=== PATIENT | male | born 1985 | race Two or more races ===

== ENCOUNTER 2025-03-14 15:23 | Emergency (ER) | payer MEDICAID, OTHER ==
[~2025-03-14] VITALS: Ht 170.2 cm; Wt 72.7 kg
[2025-03-14] MEDS: FLUORESCEIN SOD OPTH TEST STRIP EACHEYE ONE (16:13)
[2025-03-14] MEDS: TETRACAINE HCL 0.5% OPTH(EYE) SOLN 4ML EACHEYE ONE (16:14)
[2025-03-14 16:35] VITALS: BP 122/78; PULSE 95; RESP 18; TEMP 97.9; O2SAT 98
--- NOTE | 2025-03-14 16:49 | ED.PDOC ---
Eye-HPI HPI Comments This is a 39 year old male presenting to the ED with a chief complaint of left eye pain and redness. Patient reports that three days ago he was cutting metal and some shavings flew into his left eye due to not wearing eye protection. Patient relays that he continued to have worsening pain, redness, and photophobia throughout the three days. Patient states that his last tetanus was over 10 years ago. Denies vision changes Denies eye discharge Denies hearing changes, nausea, vomiting Chief Complaint: Eye Problem Time Seen by MD: 16:03 Primary Care Provider: n/a Reviewed Notes: Nurses Notes, Medications, Allergies Allergies: Coded Allergies: NO KNOWN ALLERGIES (Unverified , 03/14/25) Home Meds Active Scripts Erythromycin (Erythromycin) 5 Mg/Gm Oin, 1 APPLIC OP TID for 7 Days, #3.5 GRAMS 0 Refills Prov:RANI DIAS BREAKFAST ATTENDANT 03/14/25 Ketorolac Tromethamine (Ophth) (Ketorolac Tromethamine) 0.5 % Isabel, 1 DROP LEFTEYE QID for 3 Days, #5 ML 0 Refills Prov:RANI DIAS BREAKFAST ATTENDANT 03/14/25 Information Source: Patient Mode of Arrival: Ambulatory Timing: Days Duration: Since onset Prehospital treatment: None Quality: Pain, Red Eye Location: Left Lids: Normal Conjunctiva: Injection Cornea: Left eye, Abrasion, Foreign Body Pupils: Normal EOM: Normal Fundus: Normal Slit lamp exam: Left eye, Corneal abrasion, Foreign Body, Flourescein stain:, Positive Anterior chamber: Normal Onset: Trauma Throat Exposed to: None Eye Context Recent: High speed machinery use History of: None Last Tetanus: >5 years Associated signs and symptoms: Photophobia Past Medical History PAST MEDICAL HISTORY: Denies Surgical History: Denies all surgeries Family History Family History: Reviewed,noncontributory to illness Social History Smoker: Non-Smoker Alcohol: Denies ETOH Use Drugs: Denies Drug Use Lives In: Home Constitutional: denies: chills, diaphoresis, fatigue, fever, malaise, sweats, weakness, others EENTM: reports: eye pain, eye redness, photophobia; denies: blurred vision, double vision, ear bleeding, ear discharge, ear drainage, ear pain, ear ringing, hearing loss, mouth pain, mouth swelling, nasal discharge, nose bleeding, nose congestion, nose pain, tearing, throat pain, throat swelling, voice changes, others Respiratory: denies: cough, hemoptysis, orthopnea, SOB at rest, shortness of breath, SOB with excertion, stridor, wheezing, others Cardiovascular: denies: chest pain, dizzy spells, diaphoresis, Dyspnea on exertion, edema, irregular heart beat, left arm pain, lightheadedness, palpitations, PND, syncope, others Gastrointestinal: denies: abdomen distended, abdominal pain, blood streaked bowels, constipated, diarrhea, dysphagia, difficulty swallowing, hematemesis, m camilo, nausea, poor appetite, poor fluid intake, rectal bleeding, rectal pain, vomiting, others Genitourinary: denies: burning, dysuria, flank pain, frequency, hematuria, incontinence, penile discharge, penile sore, pain, testicle pain, testicle swelling, urgency, others Neurological: denies: dizziness, fainting, headache, left sided numbness, left sided weakness, numbness, paresthesia, pre-existing deficit, right sided numbness, right sided weakness, seizure, speech problems, tingling, tremors, weakness, others Musculoskeletal: denies: back pain, gout, joint pain, joint swelling, muscle pain, muscle stiffness, neck pain, others Integumetry: denies: bruises, change in color, change in hair/nails, dryness, laceration, lesions, lumps, rash, wounds, others Allergic/Immunocompromised: denies: Difficulty Healing, Frequent Infections, Hives, Itching, others Hematologic/Lymphatic: denies: anemia, blood clots, easy bleeding, easy bruising, swollen glands, others Endocrine: denies: excessive hunger, excessive sweating, excessive thirst, excessive urination, flushing, intolerance to cold, intolerance to heat, unexplained weight gain, unexplained weight loss, others Psychiatric: denies: anxiety, bipolar disorder, depression, hopeless, panic disorder, schizophrenia, sleepless, suicidal, others All Other Systems: Reviewed and Negative Physical Exam General Appearance: No Apparent Distress, Normal HEENT: Pharynx Normal, TMs Normal, Other (Noticeable left conjunctival injection, however, no foreign body was appreciated with upper and lower lid aversion. EOMs were intact. CardinalField of gaze intact. No orbital erythema, swelling, or TTP.) Neck: Full Range of Motion, Non-Tender, Normal, Normal Inspection Respiratory: Chest Non-Tender, Lungs Clear, No Accessory Muscle Use, No Respiratory Distress, Normal Breath Sounds Cardiovascular: No Edema, No JVD, No Murmur, No Gallop, Normal Peripheral Pulses, Regular Rate/Rhythm Breast Exam: Deferred Gastrointestinal: No Organomegaly, Non Tender, No Pulsatile Mass, Normal Bowel Sounds, Soft Genitalia: Deferred Pelvic: Deferred Rectal: Deferred Extremities: No calf tenderness, Normal capillary refill, Normal inspection, Normal range of motion, Non-tender, No pedal edema Musculoskeletal : Apperance: Normal Neurologic: Alert, analog ic design engineer II-XII nml as Tested, No Motor Deficits, Normal Affect, Normal Mood, No Sensory Deficits Cerebellar Function: Normal Reflexes: Normal Skin: Dry, Normal Color, Warm Lymphatic: No Adenopathy Was a procedure done? Was a procedure done?: Yes Sedation Sedation?: No Foreign Body Removal Foreign body in: Eye Anesthetic: Other (tetracaine) Prep: Saline, Irrigation Procedure: Identified, Removed Informed consent obtained: Yes Risks/benefits/alt described: Yes UTO Consent History and findings consistent with corneal abrasion Applied 1 drop of tetracaine and patient reported instant relief with topical anesthesia Applied fluorescein strip Using Solorzano lamp corneal defect detected indicating corneal abrasion Tetanus prophylaxis indicated due to foreign body found in eye. Patient discharged and advised to follow-up in 48 hours with PCP or optometry Discussed with patient's approximate healing time for corneal abrasions is somewhere between 48 to 72 hours EENT DIFF Eye: Bacterial, Chlamydial, Viral, Corneal Abrasion, Glaucoma, Hordeolum (stye), Iritis/Uveitis, Rust Ring X-Ray, Labs, Meds, VS Vital Signs Date Time Temp Pulse Resp B/P (MAP) Pulse Ox O2 Delivery O2 Flow Rate FiO2 03/14/25 16:35 97.9 95 18 122/78 (93) 98 97.9 03/14/25 16:10 95 18 98 Room Air 03/14/25 15:40 98.8 95 18 119/76 (90) 97 98.8 X-Ray, Labs, Meds, VS Comment Patient arrives alert and oriented, ABC's intact, afebrile, vital signs stable, saturating well in room air After ROS and physical examination, differentials considered but not limited to: Differential diagnosis considered includes: corneal abrasion, uveitis, foreign body, retinal detachment unlikey given age and no history flashes nor floaters. Patient alert, vss, well appearing. PERRLA, EOMi, visual acuity not affected. Patient appears to have an uncomplicated corneal abrasion. No evidence of foreign body, globe rupture, iritis, conjunctivitis or any other process requiring immediate medical or surgical intervention at this time. Patient was given: Fluorescein, tetracaine, and tetanus vaccine. Tolerated medications with no adverse reaction. Applied 1 drop of tetracaine and patient reported instant relief with topical anesthesia Applied fluorescein Using Solorzano lamp corneal defect detected indicating corneal abrasion IOP: 9 Tetanus prophylaxis indicated due to foreign body found in eye. Patient discharged and advised to follow-up in 48 hours with PCP or optometry Discussed with patient's approximate healing time for corneal abrasions is somewhere between 48 to 72 hours Additional MDM Review of External, Non-ED records: External records reviewed. Discussion with independent historian (EMS, family) history obtained from the patient/parents (if applicable) at bedside Chronic conditions affecting care: None Social determinants of health affecting care: None Consideration of admission (observation or admission): I considered escalation of care to admission for this patient, however given the reassuring workup, the patient is safe for outpatient management. Time of 1ST Reevaluation: 17:00 Reevaluation 1ST: Improved Patient Education/Counseling: Diagnosis, Treatment Family Education/Counseling: No Family Present Departure 1 Departure Time of Disposition: 16:49 Impression: Primary Impression: Corneal abrasion Qualified Codes: S05.02XA - Injury of conjunctiva and corneal abrasion without foreign body, left eye, initial encounter Additional Impression: Corneal rust ring Qualified Codes: H18.892 - Other specified disorders of cornea, left eye Disposition: 01 HOME / SELF CARE / HOMELESS Condition: Stable e-Prescriptions Erythromycin (Erythromycin) 5 Mg/Gm Oin 1 APPLIC OP TID for 7 Days, #3.5 GRAMS 0 Refills Prov: RANI DIAS BREAKFAST ATTENDANT 03/14/25 Ketorolac Tromethamine (Ophth) (Ketorolac Tromethamine) 0.5 % Isabel 1 DROP LEFTEYE QID for 3 Days, #5 ML 0 Refills Prov: RANI DIAS BREAKFAST ATTENDANT 03/14/25 Critical Care Note Critical Care Time?: No Stability Stability form required: No Heart Score Heart Score: Heart Score Response (Comments) Value History N/A 0 EKG N/A 0 Age N/A 0 Risk Factors N/A 0 Troponin N/A 0 Total 0 I personally scribed for RANI DIAS NP ([email or web address]) on 03/14/25 at 16:49. Electronically submitted by Rafael Carroll ([email or web address]). I personally scribed for RANI DIAS NP ([email or web address]) on 03/14/25 at 17:08. Electronically submitted by Rafael Carroll ([email or web address]). RANI DIAS NP March 14, 2025 16:49
[2025-03-14] MEDS ORDERED: ERY05OO OP (16:51)
[2025-03-14] MEDS ORDERED: KETO0.5S31 LEFTEYE (16:51)
[2025-03-14] MEDS: TETANUS-DIPTH-ACEL PERTUSSIS 0.5ML SYR Tdap IM ONE (17:05)
== END 2025-03-14 17:25 | disposition home or self-care (01) ==
LOC: ER 15:23
DX: S05.02XA Injury of conjunctiva and corneal abrasion without foreign body, left eye, initial encounter (principal); W44.F9XA Other object of natural or organic material, entering into or through a natural orifice, initial encounter; Y93.89 Activity, other specified; Y92.89 Other specified places as the place of occurrence of the external cause; Y99.8 Other external cause status
CPT/HCPCS: 90471; 90715